=== PATIENT | female | born 1965 | race Caucasian/White ===

== ENCOUNTER 2021-05-23 08:06 | Inpatient (IN) ==
[2021-05-23] MEDS ORDERED: IOPAMIDOL 100 ML BOTTLE IV ONE (08:07)
[2021-05-23] MEDS ORDERED: 0.9 % SODIUM CHLORIDE 1,000 ML IV ONE (08:24)
--- NOTE | 2021-05-23 08:27 | Emergency Department Note ---
Abdominal Pain HPI General Chief Complaint: Constipation Stated Complaint: Constipation Time Seen by Provider: 05/23/21 08:08 Source: patient Mode of arrival: ambulatory Limitations: no limitations History of Present Illness HPI Narrative: Patient is a 55-year-old lady who arrives emergency department. History is provided by the patient discussion with the urgent care provider who initially treated her and review of her medical records. The patient says she started feeling constipated last Wednesday. She had had a very small bowel movement and also had a small bowel movement on Wednesday. Her symptoms were gradual in onset and gradually worsening to the point that she was not having any bowel movements on Wednesday or Wednesday. She tried taking [id number] laxatives which produced some watery stool but no significant bowel movement. She presented to minor care on the and was diagnosed with constipation. She is continue trying laxatives at home without any improvement in her symptoms. Over the past several days she is also developed worsening abdominal bloating and has had a few episodes of brown emesis. Due to her worsening symptoms she presented once again to minor care and had an x-ray which showed significantly dilated bowel loops. She was then sent to the emergency department for further evaluation. She denies any associated fever or chills. Her abdominal pain is poorly locali zed and waxes and wanes in intensity. She has never had anything like this before. Related Data Home Medications Medication Instructions Recorded Confirmed multivitamin 1 tab PO QDAY 07/26/19 05/23/21 cetirizine 10 mg tablet (24Hour 10 mg PO QDAY PRN 12/13/20 05/23/21 Allergy) Previous Rx's Medication Instructions Recorded norethindrone (contraceptive) 0.35 See Rx Instructions .ROUTE 04/21/21 mg tablet .COMPLEX #84 tab Allergies Allergy/AdvReac Type Severity Reaction Status Date / Time Sulfa (Sulfonamide Allergy Severe Unknown Verified 05/23/21 07:11 Antibiotics) Penicillins Allergy Mild Rash Verified 05/23/21 10:48 Review of Systems ROS ROS Narrative: Narrative: All systems ED: reviewed and negative except as stated. 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 Howard No pertinent past surgical history Family History Other Family history unknown Social History Smoking Status: Never smoker Alcohol Intake Frequency: 0-2 drinks per day Substance Use: does not use Exam Narrative Narrative: I reviewed the vital signs. Gen -patient is awake and alert and appears somewhat uncomfortable but in no acute distress. The patient is well groomed. HEENT -head is atraumatic. There is no conjunctival pallor or scleral icterus. Mucous membranes are moist. CV -S1-S2 regular rate and rhythm. Peripheral pulses are palpable. There is no JVD. Resp -breathing is nonlabored. Lungs are clear to auscultation bilaterally. There is no cyanosis. GI - Abdomen is moderately distended and moderately tender to palpation diffusely. There is no guarding or rebound tenderness. Derm -skin is warm and dry. There is no visible rash. MSK -present extremities are atraumatic. Psych -patient has appropriate affect. The patient does not appear internally stimulated. Neuro -patient answers questions appropriately with fluent speech. Patient moves all present extremities equally. General Limitations: no limitations Course Vital Signs Vital signs: Vital Signs Temperature 98.6 F 05/23/21 08:07 Pulse Rate 98 H 05/23/21 08:07 Respiratory Rate 18 05/23/21 08:07 Blood Pressure 147/90 05/23/21 08:07 Pulse Oximetry (%) 100 05/23/21 08:07 Temperature 98 F 05/23/21 15:06 Pulse Rate 76 05/23/21 15:06 Respiratory Rate 18 05/23/21 15:06 Blood Pressure 167/90 05/23/21 15:06 Pulse Oximetry (%) 94 05/23/21 15:06 MDM MDM Narrative Medical decision making narrative: Patient presents with constipation abdominal distention and pain. Labs are r emarkable for a minimal leukocytosis and normal lactate. CT scan reveals a large bowel obstruction with an area suspicious for an apple core lesion colon. I discussed the diagnostic findings and my clinical concerns for possible colonic malignancy with the patient and her daughter. I also discussed her history examination and diagnostic findings with Dr. Keller. He evaluated the patient in the emergency department and took her to the operating room for intervention. Lab Data Lab results reviewed: Yes I reviewed the patient's lab results. Result diagrams: 05/23/21 13:34 05/23/21 08:35 Labs: Lab Results 05/23/21 05/23/21 05/23/21 Range/Units 08:35 08:35 08:35 WBC 8.9 (4.5-11.0) K/mcL RBC 4.62 (3.59-5.38) M/mcL Hgb 13.6 (11.2-15.7) g/dL Hct 42.0 (34.1-44.9) % MCV 90.9 (80.0-100.0) fL MCH 29.4 (26.0-34.0) pg MCHC 32.4 (31.0-36.0) g/dL RDW 12.5 (11.5-14.5) % Plt Count 398 (140-440) K/mcL MPV 9.7 (7.4-10.4) fL Neut % (Auto) 79.4 H (38.0-78.0) % Lymph % (Auto) 12.3 L (15.5-49.0) % Baldwin % (Auto) 7.3 (1.0-12.0) % Eos % (Auto) 0.3 (0.0-7.0) % Baso % (Auto) 0.7 (0.0-2.0) % Lymph # (Auto) 1.09 L (1.50-4.80) K/mcL Baldwin # (Auto) 0.65 (0.10-0.90) K/mcL Eos # (Auto) 0.03 (0.00-0.70) K/mcL Baso # (Auto) 0.06 (0.00-0.30) K/mcL Absolute Neutrophils 7.02 (1.80-8.00) K/mcL VBG Lactic Acid 1.0 (0.5-2.0) mmol/L Sodium 134 (133-145) mmol/L Potassium 3.2 L (3.3-5.1) mmol/L Chloride 95 L (96-108) mmol/L Carbon Dioxide 19 L (22-30) mmol/L Anion Gap 20.0 H (8.0-16.0) BUN 9 (6-20) mg/dL Creatinine 0.7 (0.6-1.1) mg/dL GFR Calculation 98 Glucose 93 (70-105) mg/dL Calcium 8.9 (8.6-10.4) mg/dL Total Bilirubin 0.5 (0.1-1.0) mg/dL AST 19 (<32) U/L ALT 14 (<40) U/L Alkaline Phosphatase 60 (39-117) U/L Total Protein 7.0 (5.9-8.4) gm/dL Albumin 4.5 (3.2-5.2) gm/dL Globulin 2.5 (2.2-3.7) gm/dL Albumin/Globulin Ratio 1.8 (1.0-2.3) Lipase 9 (7-60) U/L HCG, Qual Negative Urine Color Urine Appearance (Clear) Urine pH (5.0-9.0) Ur Specific Conway (1.000-1.035) Urine Protein (Negative) mg/dL Urine Glucose (UA) (Negative) mg/dL Urine Ketones (Negative) mg/dL Urine Occult Blood (Negative) mg/dL Urine Nitrate (Negative) Urine Bilirubin (Negative) mg/dL Urine Urobilinogen mg/dL Ur Leukocyte Esterase (Negative) /uL Urine RBC (0-3) /hpf Urine WBC (0-4) /hpf Ur Squamous Epith Cells (0-4) /hpf Urine Bacteria (0) /hpf Urine Mucus (None) /hpf Ur Culture Indicated? 05/23/21 05/23/21 Range/Units 11:40 13:34 WBC 12.2 H (4.5-11.0) K/mcL RBC 4.10 (3.59-5.38) M/mcL Hgb 12.5 (11.2-15.7) g/dL Hct 38.0 (34.1-44.9) % MCV 92.7 (80.0-100.0) fL MCH 30.5 (26.0-34.0) pg MCHC 32.9 (31.0-36.0) g/dL RDW 12.5 (11.5-14.5) % Plt Count 396 (140-440) K/mcL MPV 9.4 (7.4-10.4) fL Neut % (Auto) 80.3 H (38.0-78.0) % Lymph % (Auto) 13.2 L (15.5-49.0) % Baldwin % (Auto) 6.0 (1.0-12.0) % Eos % (Auto) 0.2 (0.0-7.0) % Baso % (Auto) 0.3 (0.0-2.0) % Lymph # (Auto) 1.61 (1.50-4.80) K/mcL Baldwin # (Auto) 0.73 (0.10-0.90) K/mcL Eos # (Auto) 0.02 (0.00-0.70) K/mcL Baso # (Auto) 0.04 (0.00-0.30) K/mcL Absolute Neutrophils 9.84 H (1.80-8.00) K/mcL VBG Lactic Acid (0.5-2.0) mmol/L Sodium (133-145) mmol/L Potassium (3.3-5.1) mmol/L Chloride (96-108) mmol/L Carbon Dioxide (22-30) mmol/L Anion Gap (8.0-16.0) BUN (6-20) mg/dL Creatinine (0.6-1.1) mg/dL GFR Calculation Glucose (70-105) mg/dL Calcium (8.6-10.4) mg/dL Total Bilirubin (0.1-1.0) mg/dL AST (<32) U/L ALT (<40) U/L Alkaline Phosphatase (39-117) U/L Total Protein (5.9-8.4) gm/dL Albumin (3.2-5.2) gm/dL Globulin (2.2-3.7) gm/dL Albumin/Globulin Ratio (1.0-2.3) Lipase (7-60) U/L HCG, Qual Urine Color P.yellow Urine Appearance Clear (Clear) Urine pH 5.0 (5.0-9.0) Ur Specific Conway 1.035 (1.000-1.035) Urine Protein Negative (Negative) mg/dL Urine Glucose (UA) Negative (Negative) mg/dL Urine Ketones 80 A (Negative) mg/dL Urine Occult Blood 0.03 (Negative) mg/dL Urine Nitrate Negative (Negative) Urine Bilirubin Negative (Negative) mg/dL Urine Urobilinogen Negative mg/dL Ur Leukocyte Esterase Negative (Negative) /uL Urine RBC 1 (0-3) /hpf Urine WBC 1 (0-4) /hpf Ur Squamous Epith Cells 3 (0-4) /hpf Urine Bacteria None (0) /hpf Urine Mucus Mod A (None) /hpf Ur Culture Indicated? No ED POC Tests ED POC Tests: CHELA - SARS Antigen Negative Discharge Plan Patient/Caregiver Discharge Instructions Pt seen by ADULT CARE MANAGER/PA only: No Clinical Impression: Mass of colon Patient Disposition: Xfer Other Condition: Good Discharge Date/Time: 05/23/21 11:57
[2021-05-23 09:44] LABS: Basophils # (Auto) 0.06 K/mcL (0.00-0.30); Basophils % (Auto) 0.7 % (0.0-2.0); Eosinophils # (Auto) 0.03 K/mcL (0.00-0.70); Eosinophils % (Auto) 0.3 % (0.0-7.0); Hemoglobin 13.6 g/dL (11.2-15.7); Lymphocytes # (Auto) 1.09 K/mcL (1.50-4.80); Lymphocytes % (Auto) 12.3 % (15.5-49.0); Mean Cell Volume 90.9 fL (80.0-100.0); Mean Corpuscular HGB Conc 32.4 g/dL (31.0-36.0); Mean Platelet Volume 9.7 fL (7.4-10.4); Monocytes # (Auto) 0.65 K/mcL (0.10-0.90); Monocytes % (Auto) 7.3 % (1.0-12.0); Neutrophils % (Auto) 79.4 % (38.0-78.0); Platelet Count 398 K/mcL (140-440); RBC 4.62 M/mcL (3.59-5.38); Red Cell Distribution Width 12.5 % (11.5-14.5); WBC 8.9 K/mcL (4.5-11.0)
--- NOTE | 2021-05-23 09:56 | Cat Scan Report ---
CLINICAL INFORMATION: Abdominal pain and distention COMPARISON: None. TECHNIQUE: Following enteric contrast, 80 cc of Isovue-370 were injected intravenously, and 60 seconds later, 0.625 mm helical slices were obtained from the mid heart through the subtrochanteric regions. Following reconstruction, 2.5 mm sagittal, coronal and axial reformatted images were processed and reviewed at bone, lung and soft tissue windows. Five minutes later, 0.625 mm helical slices were obtained from the mid heart through the kidneys and viewed at soft tissue windows.The exam was performed using radiation dose optimization techniques including, but not limited to, automated exposure control, adjustment of the mA and/or kV according to patient size and use of iterative reconstruction technique. FINDINGS: The lung bases are clear. No effusions. Small hiatal hernia appreciated. The visualized heart is grossly normal. Abdominal images show the gallbladder and bile ducts, liver, both kidneys, adrenal glands, spleen, pancreas and aorta, including aortic branches, are normal in size, configuration and attenuation without focal lesion. There is no adenopathy. Small free fluid is noted in the perisplenic perihepatic and intrapelvic regions. There is no free air Pelvic images show normal urinary bladder. Uterus and both ovaries are normal in size, configuration and attenuation for age. The ascending, transverse, descending and sigmoid colon are markedly dilated to the distal sigmoid level. In this area, there is concentric apple core type wall thickening which spans 18 m in length and 7 mm in thickness. It is suspicious for adenocarcinoma. The distal sigmoid and rectum are decompressed. It is best seen on sagittal image 89 and coronal image 85. The stomach and small bowel are unremarkable. Bone windows show no osseous abnormality IMPRESSION: 1. High-grade partial distal sigmoid obstruction resulting in marked proximal colonic dilatation. At the transition point, there is an 18 mm long annular apple core type wall thickening which may represent primary adenocarcinoma. No evidence of adenopathy or metastatic disease. Small amount of ascites noted. Suggest GI referral for colonoscopy. Interpreted and Authenticated by: Juan Swenson 05/23/21
[2021-05-23 10:01] LABS: HCG,Serum Negative
[2021-05-23 10:11] LABS: ALT/SGPT 14 U/L (<40); AST/SGOT 19 U/L (<32); Albumin 4.5 gm/dL (3.2-5.2); Albumin/Globulin Ratio 1.8 (1.0-2.3); Alkaline Phosphatase 60 U/L (39-117); Bilirubin,Total 0.5 mg/dL (0.1-1.0); Blood Urea Nitrogen 9 mg/dL (6-20); Calcium 8.9 mg/dL (8.6-10.4); Carbon Dioxide 19 mmol/L (22-30); Chloride 95 mmol/L (96-108); Globulin 2.5 gm/dL (2.2-3.7); Glomerular Filtration Rate 98; Glucose 93 mg/dL (70-105)
[2021-05-23] MEDS ORDERED: morphine 4 MG/ML VIAL IV ONE (10:18)
[2021-05-23] MEDS ORDERED: ONDANSETRON 4 MG/2 ML VIAL IV ONE (10:18)
[2021-05-23] MEDS ORDERED: CLINDAMYCIN 600 MG in DEXTROSE 5% IN WATER 50 ML IV SCH (10:45)
--- NOTE | 2021-05-23 10:47 | General Surg History&Physical ---
HPI History of Present Illness Patient information: Note initiated : 05/23/21 at 10:43 am Service Date, if different from initiated Date: [] Patient: Spring Bautista a 55 y/o F admitted on for Constipation. Chief Complaint: [] History of present illness: Ms. Bautista is a 55 year old F who over the last week or so has felt constipated, she has had a change in her caliber of her stools over the last month or so, she is only had liquid bowel movements over the last few days. She was seen and evaluated by urgent care, plain films showed a markedly dilated colon therefore she was referred to the emergency room. In the emergency room she underwent a CT scan which is significant for a distal sigmoid apple core lesion causing a large bowel obstruction with markedly dilated ascending transverse and descending colon. At this time she has no nausea vomiting fevers or chills. I was asked to see the patient secondary to large bowel obstructi on. 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 Howard No pertinent past surgical history Family History Other Family history unknown Social History adopted: Yes marital status: occupational status: employed occupation: [employer] physical activity: walking and weight training frequency: 3-4 times per week smoking status: Never smoker alcohol intake frequency: 0-2 drinks per day substance use type: does not use seatbelt use: always MEDS/ALLERGIES Home Medications and Allergies Home Medications Medication Instructions Recorded Confirmed Type multivitamin 1 tab PO QDAY 07/26/19 05/23/21 History cetirizine 10 mg tablet (24Hour 10 mg PO QDAY PRN 12/13/20 05/23/21 History Allergy) norethindrone (contraceptive) 0.35 See Rx Instructions .ROUTE 04/21/21 05/23/21 Rx mg tablet .COMPLEX #84 tab Allergies Allergy/AdvReac Type Severity Reaction Status Date / Time Penicillins Allergy Severe Unknown Verified 05/23/21 07:11 Sulfa (Sulfonamide Allergy Severe Unknown Verified 05/23/21 07:11 Antibiotics) Physical Examination Vital Signs Vital signs: Temp Pulse Resp BP Pulse Ox 98.6 F 88 18 192/98 99 05/23/21 08:07 05/23/21 09:23 05/23/21 08:07 05/23/21 10:01 05/23/21 09:31 General physical appearance General physical exam: well developed, well nourished and no distress Eyes Eye exam: PERRL and normal ocular movement ENT ENT exam: normal pinna, normal nares, normal mucosa, no hearing loss and no congestion Head Head exam IM: Present atraumatic and normocephalic Neck Neck exam: no masses, no bruits, trachea midline, no lymphadenopathy and no venous distension Cardiovascular Cardiovascular exam IM: Present normal rate and rhythm Respiratory Respiratory exam: normal expansion, normal respiratory effort, clear to percussion and clear to auscultation Abdomen Abdomen: Present soft, non tender, bowel sounds and distended; Absent masses Hernia: Present none Genitourinary Genitourinary (Female): Present normal external genitalia Rectum Rectum: Present normal sphincter tone, no hemorrhoids, no tenderness, no masses and no bleeding Integumentary Integumentary: Present no rash, no growths and no abnormal pigmentation Neurologic Neurologic: Present normal coordination and normal sensation Musculoskeletal Musculoskeletal: Present normal gait and normal posture Psychiatric Psychiatric: Present oriented to time, oriented to person, oriented to place, speech is normal and memory intact Results Labs Result diagrams: 05/23/21 08:35 05/23/21 08:35 Labs: Abnormal lab results 05/23/21 05/23/21 Range/Units 08:35 08:35 Neut % (Auto) 79.4 H (38.0-78.0) % Lymph % (Auto) 12.3 L (15.5-49.0) % Lymph # (Auto) 1.09 L (1.50-4.80) K/mcL Potassium 3.2 L (3.3-5.1) mmol/L Chloride 95 L (96-108) mmol/L Carbon Dioxide 19 L (22-30) mmol/L Anion Gap 20.0 H (8.0-16.0) Diabetes panel 05/23/21 Range/Units 08:35 Sodium 134 (133-145) mmol/L Potassium 3.2 L (3.3-5.1) mmol/L Chloride 95 L (96-108) mmol/L Carbon Dioxide 19 L (22-30) mmol/L BUN 9 (6-20) mg/dL Creatinine 0.7 (0.6-1.1) mg/dL Glucose 93 (70-105) mg/dL Calcium 8.9 (8.6-10.4) mg/dL AST 19 (<32) U/L ALT 14 (<40) U/L Alkaline Phosphatase 60 (39-117) U/L Total Protein 7.0 (5.9-8.4) gm/dL Albumin 4.5 (3.2-5.2) gm/dL Calcium panel 05/23/21 Range/Units 08:35 Calcium 8.9 (8.6-10.4) mg/dL Albumin 4.5 (3.2-5.2) gm/dL Pituitary panel 05/23/21 Range/Units 08:35 Sodium 134 (133-145) mmol/L Potassium 3.2 L (3.3-5.1) mmol/L Chloride 95 L (96-108) mmol/L Carbon Dioxide 19 L (22-30) mmol/L BUN 9 (6-20) mg/dL Creatinine 0.7 (0.6-1.1) mg/dL Glucose 93 (70-105) mg/dL Calcium 8.9 (8.6-10.4) mg/dL Adrenal panel 05/23/21 Range/Units 08:35 Sodium 134 (133-145) mmol/L Potassium 3.2 L (3.3-5.1) mmol/L Chloride 95 L (96-108) mmol/L Carbon Dioxide 19 L (22-30) mmol/L BUN 9 (6-20) mg/dL Creatinine 0.7 (0.6-1.1) mg/dL Glucose 93 (70-105) mg/dL Calcium 8.9 (8.6-10.4) mg/dL Total Bilirubin 0.5 (0.1-1.0) mg/dL AST 19 (<32) U/L ALT 14 (<40) U/L Alkaline Phosphatase 60 (39-117) U/L Total Protein 7.0 (5.9-8.4) gm/dL Albumin 4.5 (3.2-5.2) gm/dL All other labs normal. Imaging CT scan - abdomen: image reviewed A/P Assessment and plan (1) Large bowel obstruction: Status: Acute (2) Mass of colon: Status: Acute Narrative A/P Narrative: This is a pleasant 55-year-old female who presents with a large bowel obstructio n secondary to what appears to be an apple core lesion of the distal sigmoid colon. Risk, benefits, alternatives to treatment discussed with her at length. Colonoscopy to diagnose the lesion would likely lead to perforation secondary to the extremely dilated colon. Given the large bowel obstruction I would recommend exploratory laparotomy with resection of the mass and due to the dilated colon would recommend colostomy at this time. She verbalizes understanding, all of her questions are answered. She desires to continue. Plan: Admit to medical surge floor. to OR for exploratory laparotomy, sigmoid colectomy and ostomy at next available OR time. Time Spent With Patient Time: Total time spent is greater than 50% in coordination of care (as documented) at patient's floor/unit and/or counseling patient:
[2021-05-23] MEDS ORDERED: POTASSIUM PHOSPHATE 40 MEQ in DEXTROSE 5% IN WATER 500 ML IV ONE (11:35)
[2021-05-23] MEDS ORDERED: ONDANSETRON 4 MG/2 ML VIAL ONE (11:54)
[2021-05-23] MEDS ORDERED: DEXAMETHASONE 10 MG/ML VIAL ONE (11:54)
[2021-05-23] MEDS ORDERED: PROPOFOL 200 MG/20 ML VIAL IV ONE (11:54)
[2021-05-23] MEDS ORDERED: ROCURONIUM 10 MG/ML ML IV ONE (11:54)
[2021-05-23] MEDS ORDERED: PHENYLephrine 1 MG/10 ML SYRINGE (ANEST) ONE (11:54)
[2021-05-23] MEDS ORDERED: GLYCOPYRROLATE 0.2 MG/ML VIAL IV ONE (11:54)
[2021-05-23] MEDS ORDERED: fentaNYL 250 MCG/5 ML VIAL IV ONE (11:54)
[2021-05-23] MEDS ORDERED: ROPIVACAINE HCL/PF 20 ML VIAL IJ ONE (11:54)
[2021-05-23] MEDS ORDERED: SUGAMMADEX SODIUM 200 MG/2 ML VIAL IV ONE (11:54)
[2021-05-23] MEDS ORDERED: MIDAZOLAM 2 MG/2 ML VIAL ONE (11:54)
[2021-05-23] MEDS ORDERED: POTASSIUM CHLORIDE 40 MEQ/100 ML BAG IV ONE (11:54)
[2021-05-23] MEDS ORDERED: LIDOCAINE HCL/PF 100 MG/5 ML SYRINGE IV ONE (11:54)
[2021-05-23] MEDS ORDERED: KETAMINE 50 MG/ML Syringe (ANEST) IV ONE (11:54)
[2021-05-23 12:58] LABS: Appearance,Urine CLEAR (Clear); Bilirubin,Urine Negative (Negative); Color,Urine P.Yellow; Culture Indicated,Urine No; Glucose,Urine (UA) Negative (Negative); Ketones,Urine 80 mg/dL (Negative); Leukocyte Esterase,Urine Negative /uL (Negative); Mucus,Urine MOD /hpf; Nitrate,Urine Negative (Negative); Protein,Urine Negative (Negative); Specific Gravity,Urine 1.035 (1.000-1.035); Urine Blood 0.03 mg/dL (Negative); Urine RBC 1 /hpf (0-3); Urine Squamous Epithelial Cell 3 /hpf (0-4); Urine WBC 1 /hpf (0-4); Urobilinogen,Urine Negative
[2021-05-23] MEDS ORDERED: ACETAMINOPHEN 325 MG TABLET PO PRN (13:14)
[2021-05-23] MEDS ORDERED: ONDANSETRON 4 MG/2 ML VIAL IV PRN (13:14)
--- NOTE | 2021-05-23 13:14 | Operative Note ---
Brief Operative Note Date of procedure: 05/23/21 Pre-op diagnosis: Obstructing sigmoid mass Post-op diagnosis: same Procedure: Exploratory laparotomy, sigmoid colectomy, ostomy Grafts/Implants: No Anesthesia: GETA Findings: Apple core lesion in the mid sigmoid colon Complications: none Surgeon: Scotty Keller Estimated blood loss (cc): 100 Specimens Removed/Pathology: other (Sigmoid colon) Condition: stable Disposition: PACU Operative Note Operative Note: After risk benefits and alternatives to the procedure were discussed with the patient at length she verbalized understanding and desire to continue with the procedure. Patient was taken to main operating place upon operative table. General anesthesia was induced over endotracheal tube. Patient's prepped and draped in standard sterile surgical fashion. Surgical timeout was taken to verify patient and procedure being performed. Lower midline incision was made carried down through the skin and subcutaneous tissue upon entry into the abdominal cavity abdominal expiration revealed a lesion in the big sigmoid colon with dilated colon up to 10 cm in the cecum. The small bowel was completely decompressed consistent with a competent ileocecal valve. The sigmoid colon was transected at the rectosigmoid junction which gave a minimum of 5 cm margin from the mass it was also transected at the junction of the descending to sigmoid colon. The mesentery was taken down using the LigaSure device and the specimen was passed off the field for surgical pathology. The abdominal cavity was copiously irrigated, the rectal stump was tacked with 2 interrupted 2-0 PDS sutures to make it easier to find at the time of reversal. The pelvis was expected and there was no further pathology. Full abdominal expiration revealed no obvious liver or splenic lesions. A left-sided ostomy site was created carried down through skin and subcutaneous tissue. A cruciate lesion was made, the rectus muscles were spread and the abdominal cavity was entered. The descending colon was brought out through the ostomy site and there was no tension on the colon. The midline incision was closed with a running looped 0 PDS suture. Subcutaneous tissue was closed with a running 2-0 Vicryl suture and the skin was closed with a running 4-0 Monocryl suture. Skin glue dressings were applied. The ostomy was then matured with interrupted 3-0 Vicryl sutures once this is done and ostomy appliance was applied. Patient was then awakened from anesthesia transported postanesthesia care in awake alert good condition.
[2021-05-23] MEDS: LACTATED RINGERS 1,000 ML IV SCH ×2 (13:34→18:17)
[2021-05-23] MEDS ORDERED: KETOROLAC 15 MG/ML VIAL IV PRN (13:38)
[2021-05-23] MEDS ORDERED: PROMETHAZINE 25 MG/ML VIAL IV PRN (13:38)
[2021-05-23] MEDS ORDERED: ACETAMINOPHEN 1,000 MG/100 ML BAG IV ONE (13:38)
[2021-05-23] MEDS ORDERED: HYDROmorphone 0.5 MG/0.5 ML SYRINGE IV PRN (13:38)
[2021-05-23] MEDS ORDERED: MEPERIDINE 50 MG/ML VIAL IM PRN (13:38)
[2021-05-23] MEDS ORDERED: IPRATROPIUM/ALBUTEROL 3 ML AMPUL.NEB NEB PRN (13:38)
[2021-05-23] MEDS ORDERED: BENZOCAINE/MENTHOL 1 LOZENGE PO PRN (13:38)
[2021-05-23] MEDS ORDERED: PROMETHAZINE 25 MG/ML VIAL IM PRN (13:38)
[2021-05-23] MEDS ORDERED: LACTATED RINGERS 250 ML IV PRN (13:38)
[2021-05-23] MEDS ORDERED: NALOXONE HCL 0.4 MG/ML VIAL IV PRN (13:38)
[2021-05-23] MEDS: MEPERIDINE 25 MG/ML VIAL IV PRN ×2 (13:39→13:44)
[2021-05-23] MEDS ORDERED: fentaNYL 100 MCG/2 ML VIAL IV ONE (13:41)
[2021-05-23] MEDS ORDERED: MEPERIDINE 50 MG/ML VIAL ONE (13:42)
[2021-05-23] MEDS: fentaNYL 100 MCG/2 ML VIAL IV PRN ×4 (13:42→13:59)
[2021-05-23] MEDS ORDERED: LACTATED RINGERS 1,000 ML IV SCH (13:45)
[2021-05-23 14:07] LABS: Basophils # (Auto) 0.04 K/mcL (0.00-0.30); Basophils % (Auto) 0.3 % (0.0-2.0); Eosinophils # (Auto) 0.02 K/mcL (0.00-0.70); Eosinophils % (Auto) 0.2 % (0.0-7.0); Hemoglobin 12.5 g/dL (11.2-15.7); Lymphocytes # (Auto) 1.61 K/mcL (1.50-4.80); Lymphocytes % (Auto) 13.2 % (15.5-49.0); Mean Cell Volume 92.7 fL (80.0-100.0); Mean Corpuscular HGB Conc 32.9 g/dL (31.0-36.0); Mean Platelet Volume 9.4 fL (7.4-10.4); Monocytes # (Auto) 0.73 K/mcL (0.10-0.90); Neutrophils % (Auto) 80.3 % (38.0-78.0); Platelet Count 396 K/mcL (140-440); Red Cell Distribution Width 12.5 % (11.5-14.5); WBC 12.2 K/mcL (4.5-11.0)
[2021-05-23] MEDS: HYDROmorphone 1 MG/ML SYRINGE IV PRN ×3 (14:55→23:45)
[2021-05-23] MEDS: 0.9 % SODIUM CHLORIDE 10 ML SYRINGE IV SCH ×2 (15:02→21:04)
--- NOTE | 2021-05-23 16:15 | EKG ---
[facility] Test Date: 2021-05-23 Pat Name: Spring Bautista Department: ED Room: Gender: Female Block Cleaner: KENZIE : 1965 Requested By: Pipe Lamb Order Number: [id number] Reading MD: Juan Rahman M.D. Measurements Intervals Clarence Rate: 77 P: 44 GA: 135 QRS: -1 QRSD: 94 T: 2 QT: 403 QTc: 457 Interpretive Statements Sinus rhythm Poor R wave progression. Consider anterior infarct Electronically Signed On 05-23-2021 16:15:06 PST by Juan Rahman M.D. /store/[email or web address]/[id number]
[2021-05-23] MEDS: oxyCODONE HCL 5 MG TABLET PO PRN (22:19)
[2021-05-24] MEDS: HYDROmorphone 1 MG/ML SYRINGE IV PRN (03:46)
[2021-05-24] MEDS: LACTATED RINGERS 1,000 ML IV SCH ×4 (03:46→22:30)
[2021-05-24] MEDS: 0.9 % SODIUM CHLORIDE 10 ML SYRINGE IV SCH ×4 (03:47→20:15)
[2021-05-24] MEDS: oxyCODONE HCL 5 MG TABLET PO PRN ×5 (07:07→22:30)
--- NOTE | 2021-05-24 07:22 | General Surgery Progress Note ---
SUBJECTIVE Subjective Patient information: Note initiated : 05/24/21 at 7:21 am Service Date, if different from initiated Date: [] Patient: Spring Bautista 55 y/o F admitted on 05/23/21 for Constipation. 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 Patient is doing well, she is ambulatory. She has no nausea or vomiting. Her ostomy is having output. Constitutional Vitals: Vital Signs Temp Pulse Resp BP Pulse Ox 98.3 F 80 16 147/77 95 05/24/21 07:12 05/24/21 07:12 05/24/21 07:12 05/24/21 07:12 05/24/21 07:12 Period Temp Pulse Resp BP Sys/Garcia Pulse Ox Last 24 Hr 97.2 F-98.6 F 61-98 10- 119-199/73-105 90-100 Intake and Output 05/23/21 05/24/21 05/24/21 21:59 05:59 13:59 Intake Total 2154 1150 Output Total 250 2230 Balance 1904 -1080 Weight 164 lb 14.4 oz Intake & Output: Intake & Output 05/23/21 05/24/21 05/24/21 21:59 05:59 13:59 Intake Total 2154 1150 Output Total 250 2230 Balance 1904 -1080 Weight 164 lb 14.4 oz Intake: IV 454 Lactated Ringers 1,000 ml @ 75 354 mls/hr IV .[id number] [facility] Rx#: [id number] Oral 1300 1150 IV - Manual Only 400 Output: Urine Catheter Amount 250 2150 Stool 80 Other: Meal Dinner Percent of Meal Consumed 75% Feeding Ability Independent Urine Appearance Clear Cloudy Uretheral (Morrow) Clear Urine Color Straw Pale Uretheral (Morrow) Straw Urine Odor Normal Uretheral (Morrow) Normal Stool Color Brown Stool Consistency Liquid General appearance: cooperative and no acute distress GI/Abdominal GI/Abdominal exam: Present normal bowel sounds, soft and tenderness (Appropriate tender to palpation); Absent distended Additional comments: Incision is clean dry and intact, ostomy is pink and functioning A/P Narrative A/P Narrative: Postop day #1 status post exploratory laparotomy, sigmoid colectomy and ostomy. Patient is doing well, no appetite as of yet. Continue with liquid diet, if she tolerates today can be advanced to regular diet tomorrow. Time Spent With Patient Time: Total time spent is greater than 50% in coordination of care (as documented) at patient's floor/unit and/or counseling patient:
[2021-05-25] MEDS: oxyCODONE HCL 5 MG TABLET PO PRN ×5 (02:53→21:09)
[2021-05-25] MEDS: LACTATED RINGERS 1,000 ML IV SCH ×2 (04:29→20:29)
[2021-05-25] MEDS: 0.9 % SODIUM CHLORIDE 10 ML SYRINGE IV SCH ×3 (04:37→20:57)
--- NOTE | 2021-05-25 09:49 | General Surgery Progress Note ---
SUBJECTIVE Subjective Patient information: Note initiated : 05/25/21 at 9:46 am Service Date, if different from initiated Date: [] Patient: Spring Bautista a 55 y/o F admitted on 05/23/21 for Constipation. Chief Complaint: [POD #2 Open Sigmoid Resection with End Colostomy for Malignant Colonic Obstruction] Spring feels well this am with only minimal pain. She denies any SOB or Chest Pain. She is tolerating Clear Liquids well without issue Constitutional Vitals: Vital Signs Temp Pulse Resp BP Pulse Ox 97.6 F 74 16 158/85 97 05/25/21 07:56 05/25/21 07:56 05/25/21 07:56 05/25/21 07:56 05/25/21 07:56 Period Temp Pulse Resp BP Sys/Garcia Pulse Ox Last 24 Hr 97.6 F-99 F 70-87 16-18 120-161/61-85 94-97 Intake and Output 05/24/21 05/25/21 05/25/21 21:59 05:59 13:59 Intake Total 1000 400 550 Output Total 2650 1525 400 Balance -1650 -1125 150 Weight 163 lb 3.2 oz Intake & Output: Intake & Output 05/24/21 05/25/21 05/25/21 21:59 05:59 13:59 Intake Total 1000 400 550 Output Total 2650 1525 400 Balance -1650 -1125 150 Weight 163 lb 3.2 oz Intake: IV 1000 Lactated Ringers 1,000 ml @ 75 1000 mls/hr IV .[id number] [facility] Rx#: [id number] Oral 400 550 Output: Urine Catheter Amount 1650 Void Amount 1000 1500 400 Stool 25 Other: Urine Appearance Clear Urine Color Pale Stool Color Brown Stool Consistency Liquid # Voids 1 General appearance: no acute distress Head Head exam: Present atraumatic and normocephalic Respiratory Additional comments: no respiratory distress Cardiovascular Cardiovascular exam: Present normal rate and rhythm and RRR GI/Abdominal Additional comments: belly is soft and generally flat, midline incision is intact without drainage or infection, ostomy looks pink with some liquid stool Extremities Exam Additional comments: appear well perfused A/P Narrative A/P Narrative: POD #2 Open Sigmoid Resection with End Colostomy for Malignant Colonic Obst ruction Doing Well Advance Diet as Tolerated - she indicates she would like to advance slowly - but keep maintenance IVFs going for now with given cautious oral intake DVT prophylaxis Time Spent With Patient Time: Total time spent is greater than 50% in coordination of care (as documented) at patient's floor/unit and/or counseling patient:
[2021-05-25] MEDS: HEPARIN 5,000 UNIT/ML VIAL SQ SCH ×2 (11:38→20:57)
[2021-05-26] MEDS: oxyCODONE HCL 5 MG TABLET PO PRN ×2 (02:39→08:56)
[2021-05-26] MEDS: 0.9 % SODIUM CHLORIDE 10 ML SYRINGE IV SCH (04:36)
[2021-05-26 07:06] LABS: Hematocrit 33.2 % (34.1-44.9); Hemoglobin 10.4 g/dL (11.2-15.7); Mean Cell Volume 96.2 fL (80.0-100.0); Mean Corpuscular HGB Conc 31.3 g/dL (31.0-36.0); Mean Platelet Volume 9.7 fL (7.4-10.4); Platelet Count 292 K/mcL (140-440); RBC 3.45 M/mcL (3.59-5.38); Red Cell Distribution Width 12.7 % (11.5-14.5); WBC 6.6 K/mcL (4.5-11.0)
[2021-05-26] MEDS: HEPARIN 5,000 UNIT/ML VIAL SQ SCH (08:57)
--- NOTE | 2021-05-26 11:39 | Discharge Summary ---
Discharge Provider Provider Patient information: Note initiated : 05/26/21 at 11:38 am Service Date, if different from initiated Date: [] Patient: Spring Bautista 55 y/o F admitted on 05/23/21 for Constipation. Chief Complaint: [] Date of admission: 05/23/21 14:44 Discharge date: 05/26/21 Primary care physician: [facility] Consults: 05/23/21 Consult to Physician [CONS] Stat Comment: Consulting Provider: Scotty Keller Reason For Exam: Physician to Consult COURSE Hospital Course Hospital course: Patient was mated for a large bowel obstruction, underwent exploratory laparotomy, sigmoid colectomy with an colostomy. Postoperatively patient has progressed well, she is now tolerating full liquid diet, ambulatory, pain is controlled and her ostomy is functioning. Discharge diagnosis: Status post sigmoid colectomy for large bowel obstruction. Time Spent with Patient Time attestation: Total time spent providing and/or coordinating discharge services: Physical Examination Vital Signs Vital signs: Temp Pulse Resp BP Pulse Ox 99.0 F 88 20 156/89 97 05/26/21 08:00 05/26/21 08:00 05/26/21 08:00 05/26/21 08:00 05/26/21 08:00 Discharge Plan Patient/Caregiver Discharge Instructions Activity: increase activity as tolerated Diet: Regular Diet Activity Restrictions/Additional Instructions: Follow-up with me in 1 week. Activity as tolerated. Prescriptions: New ibuprofen 800 mg tablet 800 mg PO TID PRN (Reason: pain) Qty: 60 0RF acetaminophen [Tylenol 8 Hour] 650 mg tablet extended release 650 mg PO Q8H PRN (Reason: pain) Qty: 60 0RF oxycodone 5 mg tablet 5 mg PO Q6H PRN (Reason: pain) Qty: 5 0RF Continued norethindrone (contraceptive) 0.35 mg tablet See Rx Instructions .ROUTE .COMPLEX Qty: 84 4RF Dose Instruction: take 1 tablet by mouth once daily Rx Instructions: take 1 tablet by mouth once daily multivitamin Tablet 1 tab PO QDAY 0RF cetirizine [24Hour Allergy] 10 mg tablet 10 mg PO QDAY PRN (Reason: Allergy Symptoms) 0RF Follow Up Plan Follow up with: Scotty Keller MD [Physician] - [place],Patricia L, [employer] [Primary Care Provider] - Patient Disposition: Home, Self-Care Prognosis: Good Discharge Orders: Discharge Order (Routine); Ordered 05/26/21 Ordered By: Scotty Keller Pending Pending Pending: Resuscitation Status Resuscitate (Full Code) Diet Full Liquid Diet Start WedMay 25 1007 Heparin Sodium (Porcine) (Heparin 5,000 Unit/Ml Vial) 5,000 unit SQ Q12 [facility] Last Admin: 05/26/21 08:57 Dose: Not Given Documented by: Admin: 05/25/21 20:57 Dose: 5,000 unit Documented by: Admin: 05/25/21 11:38 Dose: 5,000 unit Documented by: MED Hydromorphone HCl (Hydromorphone 1 Mg/Ml Syringe) 0 mg IV Q2HP PRN; Protocol PRN Reason: Per Pain Protocol Last Admin: 05/24/21 03:46 Dose: 1 mg Documented by: Admin: 05/23/21 23:45 Dose: 1 mg Documented by: Admin: 05/23/21 19:00 Dose: 1 mg Documented by: Admin: 05/23/21 14:55 Dose: 1 mg Documented by: MAE Ondansetron HCl (Ondansetron 4 Mg/2 Ml Vial) 4 mg IV Q4HP PRN; Protocol PRN Reason: Nausea And Vomiting Last Admin: 05/23/21 22:18 Dose: 4 mg Documented by: LADONNA Oxycodone HCl (Oxycodone Hcl 5 Mg Tablet) 0 mg PO Q4HP PRN; Protocol PRN Reason: Per Pain Protocol Last Admin: 05/26/21 08:56 Dose: 5 mg Documented by: Admin: 05/26/21 02:39 Dose: 10 mg Documented by: Admin: 05/25/21 21:09 Dose: 10 mg Documented by: Admin: 05/25/21 16:19 Dose: 5 mg Documented by: Admin: 05/25/21 14:54 Dose: 5 mg Documented by: Admin: 05/25/21 09:22 Dose: 10 mg Documented by: Admin: 05/25/21 02:53 Dose: 10 mg Documented by: Admin: 05/24/21 22:30 Dose: 10 mg Documented by: Admin: 05/24/21 17:30 Dose: 2 mg Documented by: Admin: 05/24/21 12:23 Dose: 10 mg Documented by: [email or web address] Admin: 05/24/21 08:32 Dose: 5 mg Documented by: [id number] Admin: 05/24/21 07:07 Dose: 5 mg Documented by: [id number] Admin: 05/23/21 22:19 Dose: 5 mg Documented by: LADONNA Sodium Chloride (0.9 % Sodium Chloride 10 Ml Syringe) 10 ml IV Q8 [facility] Last Admin: 05/26/21 04:36 Dose: 10 ml Documented by: Admin: 05/25/21 20:57 Dose: 10 ml Documented by: Admin: 05/25/21 16:19 Dose: 10 ml Documented by: Admin: 05/25/21 04:37 Dose: 10 ml Documented by: Admin: 05/24/21 20:15 Dose: 10 ml Documented by: Admin: 05/24/21 15:12 Dose: 10 ml Documented by: Admin: 05/24/21 05:53 Dose: Not Given Documented by: Admin: 05/24/21 03:47 Dose: 10 ml Documented by: Admin: 05/23/21 21:04 Dose: 10 ml Documented by: Admin: 05/23/21 15:02 Dose: Not Given Documented by: MAE Shift Summary 05/26/21 04:32 Shift Summary by Carey Olson Primary Diagnosis: Large bowel obstruction Registration Status: inpatient Day of Hospitalization: admit 05/23 Date of Surgery (if applicable): 05/23/21 Pertinent Medical Dx/Issues (may be more than one):Ms. Bautista is a 55 year old F who over the last week or so has felt constipated, she has had a change in her caliber of her stools over the last month or so, she is only had liquid bowel movements over the last few days. She was seen and evaluated by urgent care, plain films showed a markedly dilated colon therefore she was referred to the emergency room. In the emergency room she underwent a CT scan which is significant for a distal sigmoid apple core lesion causing a large bowel obstruction with markedly dilated ascending transverse and descending colon. At this time she has no nausea vomiting fevers or chills. Sigmoid colostomy placed to [facility]. Interventions (O2, wounds, diuresis, etc): , pain meds Vital Signs with Trends: VSS on RA Meds (abo, pain, BP, etc): 2 oxycodone q 4-5 hrs during the night Lines/Tubes: IV to L hand. Oxygen needs (home use vs. current use): VSS on RA Lab/Rad results: Date of last BM: patient having little liquid BM in ostomy Elimination: bathroom Trends (is the patient improving?): Activity: up ad burt Expected date of discharge: TBD Discharge Plan (needs, disposition, etc): TBD Initialized on 05/26/21 04:32 - END OF NOTE
--- NOTE | 2021-05-27 11:30 | Surgical Pathology Report ---
Histology Microscopic Diagnosis Specimen A- COLON, SIGMOID, PARTIAL COLECTOMY: --- INVASIVE MODERATELY DIFFERENTIATED ADENOCARCINOMA, WITH THE FOLLOWING FEATURES: -- TUMOR SIZE: 4 x 3 x 1.5 cm. -- TUMOR EXTENT: INVADES THROUGH MUSCULARIS PROPRIA INTO PERICOLORECTAL TISSUE. -- LYMPHOVASCULAR INVASION: NOT IDENTIFIED. -- PERINEURAL INVASION: NOT IDENTIFIED. -- SURGICAL MARGINS: FREE OF TUMOR, CARCINOMA IS 3.5 cm FROM THE MESENTERIC (CLOSEST) MARGIN. -- LYMPH NODES: METASTATIC CARCINOMA PRESENT IN ONE OF EIGHTEEN LYMPH NODES (1/18). -- TUMOR DEPOSITS: PRESENT, ONE. -- PATHOLOGIC STAGE CLASSIFICATION: pT3 N1a. --- BACKGROUND COLONIC MUCOSA WITH NO DIAGNOSTIC ALTERATIONS. (RLF:sln) SUMMARY CANCER DATA Procedure: Sigmoidectomy. Tumor Site: Sigmoid. Histologic Type: Adenocarcinoma. Histologic Grade: Grade 2, moderately differentiated. Tumor Size: 4 x 3 x 1.5 cm. Tumor Extent: Invades through muscularis propria into pericolorectal tissue. Macroscopic Tumor Perforation: Not identified. Lymphovascular Invasion: Not identified. Perineural Invasion: Not identified. Margins: All margins negative for invasive carcinoma. Closest margin to invasive carcinoma: Mesenteric margin, 3.5 cm. Invasive carcinoma is 6 cm from the distal margin and 11.5 cm from the proximal margin. Regional Lymph Nodes: Regional lymph node status: Tumor present in regional lymph nodes. Number of lymph nodes with tumor: 1. Number of lymph nodes examined: 18. Tumor Deposits: Present, one. Pathologic Stage Classification: pT3 N1a. Clinical History Large bowel obstruction. Gross Description The specimen is received in formalin designated as colon resection sigmoid colon and consists of a segment of colon that measures 17.5 cm in length with a distal diameter of 2.5 cm and a proximal diameter of 6 cm. Within the mid region there is a tight circumferential mass. The bowel proximal to this is markedly dilated. Both margins are stapled. The specimen is opened revealing brown fecal material. An occlusive circumferential mass is present in the mid region, 6 cm from the stapled distal margin and 11.5 cm from the stapled proximal margin. The resected mesenteric margin in the region of the mass is 3.5 cm. The mass measures 3 x 4 cm. Sectioning reveals the tumor grossly appears to penetrate the muscularis propria to invade subjacent adipose tissue. The proximal bowel wall is thinned to 0.2 cm thickness and the distal wall is up to 0.7 cm thickness. No additional mucosal lesions are identified. A few lymph nodes are identified within attached adipose tissue. Also received is a separate circular portion of skin with underlying adipose tissue. The skin measures 2 x 1.9 cm and has a thickness of 3 cm. Sections are submitted according to the following slide ghotra: A1 - proximal, distal and radial margin; A2-A4 - cross sections of tumor; A5 - technical sales representatives cross sections of colon wall; A6 - possible paracolonic lymph nodes (6, 1 inked and trisected); A7 - possible paracolonic lymph nodes (7); A8 - possible paracolonic lymph nodes (5) with separate portion of vascular tissue and possible associated mass - inked blue; A9 - single grossly positive lymph node; A10 - technical sales representatives cross section of separate skin and underlying adipose tissue. (ACP:solomon) Electronically Signed Raquel Miller MD, FCAP Electronically Signed 05/27/2021 11:28
== END 2021-05-26 14:30 | disposition home or self-care (01) | DRG 330 ==
LOC: ED 08:06 → SUR 11:27 → MEDSUR 14:44
PROVIDERS: ADMIT Surgery; ATTEND Surgery

== ENCOUNTER 2021-07-07 08:00 | Inpatient (IN) ==
[2021-06-30 10:18] LABS: Basophils # (Auto) 0.06 K/mcL (0.00-0.30); Basophils % (Auto) 1.3 % (0.0-2.0); Eosinophils # (Auto) 0.12 K/mcL (0.00-0.70); Eosinophils % (Auto) 2.6 % (0.0-7.0); Hematocrit 41.2 % (34.1-44.9); Lymphocytes # (Auto) 1.78 K/mcL (1.50-4.80); Lymphocytes % (Auto) 38.6 % (15.5-49.0); Mean Cell Volume 93.2 fL (80.0-100.0); Mean Corpuscular HGB Conc 31.6 g/dL (31.0-36.0); Mean Platelet Volume 10.3 fL (7.4-10.4); Monocytes # (Auto) 0.28 K/mcL (0.10-0.90); Monocytes % (Auto) 6.1 % (1.0-12.0); Neutrophils % (Auto) 51.4 % (38.0-78.0); Platelet Count 274 K/mcL (140-440); RBC 4.42 M/mcL (3.59-5.38); Red Cell Distribution Width 13.5 % (11.5-14.5); WBC 4.6 K/mcL (4.5-11.0)
[2021-06-30 10:35] LABS: ALT/SGPT 8 U/L (<40); AST/SGOT 15 U/L (<32); Albumin 4.4 gm/dL (3.2-5.2); Alkaline Phosphatase 63 U/L (39-117); Bilirubin,Total 0.4 mg/dL (0.1-1.0); Blood Urea Nitrogen 16 mg/dL (6-20); Calcium 9.3 mg/dL (8.6-10.4); Carbon Dioxide 23 mmol/L (22-30); Chloride 106 mmol/L (96-108); Globulin 2.2 gm/dL (2.2-3.7); Glomerular Filtration Rate 98; Glucose 105 mg/dL (70-105)
--- NOTE | 2021-06-30 16:39 | EKG ---
[facility] Test Date: 2021-06-30 Pat Name: pSring Bautista Department: [facility]ILA Room: Gender: Female Photographer Model: : 1965 Requested By: Grant Salter Order Number: [id number] Reading MD: Juan Rahman M.D. Measurements Intervals [place] Rate: 59 P: 37 [place]: 146 QRS: 12 QRSD: 92 T: 45 QT: 419 QTc: 415 Interpretive Statements Sinus rhythm Left atrial enlargement Artifact in lead(s) V2 and baseline wander in lead(s) V1,V2,V6 Poor R wave progression. Electronically Signed On 06-30-2021 16:39:05 PST by Juan Rahman M.D. /[facility] [place]/[id number]
[2021-07-10] MEDS ORDERED: SCOPOLAMINE 1 PATCH PATCH TOPICAL PRN (05:00)
[2021-07-10] MEDS ORDERED: IPRATROPIUM/ALBUTEROL 3 ML AMPUL.NEB NEB PRN ×2 (05:00→08:48)
[2021-07-10] MEDS ORDERED: ceFAZolin 1 GM VIAL IV ONE (06:00)
[2021-07-10] MEDS ORDERED: ceFAZolin 2 GM in DEXTROSE 5% IN WATER 50 ML IV SCH (06:15)
[2021-07-10] MEDS ORDERED: SUGAMMADEX SODIUM 200 MG/2 ML VIAL IV ONE (07:37)
[2021-07-10] MEDS ORDERED: KETAMINE 50 MG/ML Syringe (ANEST) IV ONE (07:37)
[2021-07-10] MEDS ORDERED: ONDANSETRON 4 MG/2 ML VIAL ONE (07:37)
[2021-07-10] MEDS ORDERED: LIDOCAINE W/EPI 2% 20 ML VIAL ONE (07:37)
[2021-07-10] MEDS ORDERED: fentaNYL 100 MCG/2 ML VIAL IV ONE (07:37)
[2021-07-10] MEDS ORDERED: DEXAMETHASONE 10 MG/ML VIAL ONE (07:37)
[2021-07-10] MEDS ORDERED: LIDOCAINE HCL/PF 100 MG/5 ML SYRINGE IV ONE (07:37)
[2021-07-10] MEDS ORDERED: ePHEDrine 50 MG/5 ML SYRINGE (ANEST) IV ONE (07:37)
[2021-07-10] MEDS ORDERED: ROPIVACAINE HCL/PF 20 ML VIAL IJ ONE (07:37)
[2021-07-10] MEDS ORDERED: GLYCOPYRROLATE 0.2 MG/ML VIAL IV ONE (07:37)
[2021-07-10] MEDS ORDERED: MIDAZOLAM 2 MG/2 ML VIAL ONE (07:37)
[2021-07-10] MEDS ORDERED: ROCURONIUM 10 MG/ML ML IV ONE (07:37)
[2021-07-10] MEDS ORDERED: PROPOFOL 200 MG/20 ML VIAL IV ONE (07:37)
[2021-07-10] MEDS ORDERED: PROMETHAZINE 25 MG/ML VIAL IM PRN (08:48)
[2021-07-10] MEDS ORDERED: ONDANSETRON 4 MG/2 ML VIAL IV PRN ×2 (08:48→09:39)
[2021-07-10] MEDS ORDERED: LABETALOL 5 MG/ML ML IV PRN (08:48)
[2021-07-10] MEDS ORDERED: PROMETHAZINE 25 MG/ML VIAL IV PRN (08:48)
[2021-07-10] MEDS ORDERED: LACTATED RINGERS 250 ML IV PRN (08:48)
[2021-07-10] MEDS ORDERED: MEPERIDINE 50 MG/ML VIAL IM PRN (08:48)
[2021-07-10] MEDS ORDERED: ACETAMINOPHEN 1,000 MG/100 ML BAG IV ONE (08:48)
[2021-07-10] MEDS ORDERED: NALOXONE HCL 0.4 MG/ML VIAL IV PRN (08:48)
[2021-07-10] MEDS ORDERED: MEPERIDINE 25 MG/ML VIAL IV PRN (08:48)
[2021-07-10] MEDS ORDERED: BENZOCAINE/MENTHOL 1 LOZENGE PO PRN (08:48)
[2021-07-10] MEDS ORDERED: KETOROLAC 30 MG/ML VIAL IV PRN ×2 (08:48→09:39)
[2021-07-10] MEDS ORDERED: LACTATED RINGERS 1,000 ML IV SCH (09:00)
[2021-07-10] MEDS ORDERED: HYDROmorphone 0.5 MG/0.5 ML SYRINGE IV PRN (09:39)
--- NOTE | 2021-07-10 09:39 | Operative Note ---
Brief Operative Note Date of procedure: 07/10/21 Pre-op diagnosis: History of ostomy status post resection for obstructive colon cancer Post-op diagnosis: same Procedure: Open ostomy reversal Grafts/Implants: No Anesthesia: GETA Findings: Normal anatomy, no obvious recurrence Complications: none Surgeon: Scotty Keller Estimated blood loss (cc): 50 Specimens Removed/Pathology: other (Margin of rectal stump, ostomy) Condition: stable Disposition: floor Operative Note Operative Note: After risk benefits and alternatives to the procedure were discussed with the patient at length she verbalized understanding and desire to continue with the procedure. Patient was taken to the main operating place upon the operative table. General esthesia was induced over endotracheal tube. Patient was then placed in modified lithotomy position. NG tube and Morrow catheter was placed. Patient's prepped and draped in the standard sterile surgical fashion. Surgical timeout was taken to verify patient and procedure being performed. Previous midline incision was used carried down through skin subtendinous tissue. The abdominal cavity was entered and omental adhesions were carefully taken down with blunt sharp and electrocautery dissection. Once this was done exploration revealed minimal adhesions the distal sigmoid was identified and carefully dissected free from the lateral abdominal wall once it was free it laid well above the pelvic brim without tension. The ostomy was then carefully dissected free circumferentially with blunt and electrocautery dissection. The ostomy was then transected with the KENDAL stapler and this came down to the pelvis without difficulty allowing a tension-free anastomosis. Due to inflammation at the end of the distal sigmoid this was transected with the KENDAL stapler both staple lines were oversewn with interrupted 3-0 Vicryl sutures. A [id number] functional end-to-end handsewn anastomosis was then performed using a backwall of 3-0 Vicryl a running 3-0 PDS for the inner layer and front wall of interrupted 3-0 Vicryl sutures. The anastomosis was widely patent it laid in the pelvis without tension and the small bowel was returned to their anatomical position. The abdominal cavity was irrigated and inspected for hemostasis. The ostomy was then cored out from the subcutaneous tissue and the fascia. Hemostasis was obtained with electrocautery and then the fascia was closed with a running looped 0 PDS suture. The skin was closed with a 0 Vicryl pursestring suture and the wound was packed with Betadine soaked Kerlix gauze. We then changed to a closing tray and the fascia was closed with a running 0 PDS suture subcutaneous tissues were closed with a running 4 Monocryl suture and skin glue dressings were applied. Patient was then awakened from anesthesia transported postanesthesia care unit awake alert in good condition.
[2021-07-10] MEDS: fentaNYL 100 MCG/2 ML VIAL IV PRN ×2 (10:14→10:16)
[2021-07-10] MEDS: LACTATED RINGERS 1,000 ML IV SCH ×3 (10:43→21:30)
[2021-07-10] MEDS: oxyCODONE HCL 5 MG TABLET PO PRN ×2 (16:46→20:50)
[2021-07-11] MEDS: oxyCODONE HCL 5 MG TABLET PO PRN ×3 (00:50→09:13)
[2021-07-11] MEDS: LACTATED RINGERS 1,000 ML IV SCH ×3 (03:19→14:39)
--- NOTE | 2021-07-11 08:09 | General Surgery Progress Note ---
SUBJECTIVE Subjective Patient information: Note initiated : 07/11/21 at 8:08 am Service Date, if different from initiated Date: [] Patient: Spring Bautista 55 y/o F admitted on 07/10/21 for Open Ostomy Reversal. Chief Complaint: [] Principal diagnosis: Postop day #1 status post ostomy reversal Interval history: Patient is doing well overnight, no nausea vomiting fevers or chills. Patient is ambulatory. No flatus, no bowel movement. Constitutional Vitals: Vital Signs Temp Pulse Resp BP Pulse Ox 98.7 F 67 16 124/72 98 07/11/21 07:29 07/11/21 07:29 07/11/21 07:29 07/11/21 07:29 07/11/21 07:29 Period Temp Pulse Resp BP Sys/Garcia Pulse Ox Last 24 Hr 97.4 F-99.6 F 66-86 11-20 113-170/55-88 95-100 Intake and Output 07/10/21 07/11/21 07/11/21 21:59 05:59 13:59 Intake Total 2370 1610 Output Total 1550 1350 Balance 820 260 Weight 149 lb 14.4 oz Intake & Output: Intake & Output 07/10/21 07/11/21 07/11/21 21:59 05:59 13:59 Intake Total 2370 1610 Output Total 1550 1350 Balance 820 260 Weight 149 lb 14.4 oz Intake: IV 610 1000 Lactated Ringers 1,000 ml @ 455 361 1016 mls/hr IV .Q10H [facility] Rx#: [id number] Oral 560 610 IV - Manual Only 1200 Output: Urine Catheter Amount 400 Void Amount 1150 1350 Other: Meal Jello from dinner Percent of Meal Consumed 50% Feeding Ability Independent Urine Appearance Clear Clear Clear Urine Color Pale Bright Yellow Pale Urine Odor Normal Normal Stool Color Brown Stool Consistency Soft # Voids 1 General appearance: cooperative and no acute distress GI/Abdominal GI/Abdominal exam: Present soft and tenderness (Appropriate tender to palpation); Absent distended Additional comments: Incision is clean dry intact, well amount of serosanguineous discharge on aissatou ssing. A/P Narrative A/P Narrative: Doing as expected, awaiting return of bowel function. Continue with clear liquid diet. Continue with ambulation. Time Spent With Patient Time: Total time spent is greater than 50% in coordination of care (as documented) at patient's floor/unit and/or counseling patient:
[2021-07-11] MEDS ORDERED: NORETHINDRONE ACETATE PO SCH (09:00)
[2021-07-11] MEDS: ACETAMINOPHEN 325 MG TABLET PO PRN ×2 (12:39→19:01)
[2021-07-11] MEDS: IBUPROFEN 600 MG TABLET PO PRN ×2 (15:23→22:35)
[2021-07-12] MEDS: LACTATED RINGERS 1,000 ML IV SCH (02:37)
[2021-07-12] MEDS: ACETAMINOPHEN 325 MG TABLET PO PRN ×4 (02:42→20:59)
--- NOTE | 2021-07-12 09:55 | General Surgery Progress Note ---
SUBJECTIVE Subjective Patient information: Note initiated : 07/12/21 at 9:53 am Service Date, if different from initiated Date: [] Patient: Spring Bautista 55 y/o F admitted on 07/10/21 for Open Ostomy Reversal. Chief Complaint: [] Principal diagnosis: Postop day #2 status post ostomy reversal Interval history: Patient feels well overnight, no nausea vomiting fevers or chills. Patient started passing flatus earlier this morning and has passed flatus multiple times. No bowel movement as of yet. She has been ambulatory. Constitutional Vitals: Vital Signs Temp Pulse Resp BP Pulse Ox 96.6 F L 68 16 160/91 97 07/12/21 07:42 07/12/21 07:42 07/12/21 07:42 07/12/21 07:42 07/12/21 07:42 Period Temp Pulse Resp BP Sys/Garcia Pulse Ox Last 24 Hr 96.6 F-98.5 F 60-68 16-18 121-160/67-91 97-98 Intake and Output 07/11/21 07/12/21 07/12/21 21:59 05:59 13:59 Intake Total 740 1300 Output Total 1050 550 Balance -310 750 Weight 145 lb 12.8 oz Intake & Output: Intake & Output 07/11/21 07/12/21 07/12/21 21:59 05:59 13:59 Intake Total 740 1300 Output Total 1050 550 Balance -310 750 Weight 145 lb 12.8 oz Intake: IV 1000 Lactated Ringers 1,000 ml @ 100 1000 mls/hr IV .Q10H [facility] Rx#: [id number] Oral 740 300 Output: Void Amount 1050 550 Other: Urine Appearance Clear Clear Clear Urine Color Bright Yellow Straw Straw Urine Odor Normal Normal General appearance: cooperative and no acute distress GI/Abdominal GI/Abdominal exam: Present soft; Absent distended or tenderness Additional comments: Incision is clean dry and intact. Ostomy site packing removed, covered with 4 x 4. A/P Narrative A/P Narrative: Doing as expected postop. Early return of bowel function. Plan: Advance diet as tolerated. Change dressing to ostomy site twice daily or as needed. Time Spent With Patient Time: Total time spent is greater than 50% in coordination of care (as documented) at patient's floor/unit and/or counseling patient:
[2021-07-12] MEDS: IBUPROFEN 600 MG TABLET PO PRN ×2 (10:45→18:10)
[2021-07-12] MEDS: NORETHINDRONE 0.35 MG PO SCH (14:17)
[2021-07-13] MEDS: IBUPROFEN 600 MG TABLET PO PRN ×3 (00:14→20:17)
[2021-07-13] MEDS: ACETAMINOPHEN 325 MG TABLET PO PRN ×2 (03:43→14:54)
[2021-07-13] MEDS: NORETHINDRONE 0.35 MG PO SCH (09:00)
--- NOTE | 2021-07-13 10:16 | General Surgery Progress Note ---
SUBJECTIVE Subjective Patient information: Note initiated : 07/13/21 at 10:14 am Service Date, if different from initiated Date: [] Patient: Spring Bautista 55 y/o F admitted on 07/10/21 for Open Ostomy Reversal. Chief Complaint: [] Principal diagnosis: Postop day #3 status post ostomy reversal Interval history: As well this morning, she continues to ambulate, she continues to pass flatus. She is tolerating a regular diet but has not had a bowel movement as of yet. She has no fevers chills nausea or vomiting. Constitutional Vitals: Vital Signs Temp Pulse Resp BP Pulse Ox 98.0 F 86 16 160/102 98 07/13/21 07:17 07/13/21 07:17 07/13/21 07:17 07/13/21 07:17 07/13/21 07:17 Period Temp Pulse Resp BP Sys/Garcia Pulse Ox Last 24 Hr 97.9 F-98.4 F 66-86 16-18 134-160/75-102 97-98 Intake and Output 07/12/21 07/13/21 07/13/21 21:59 05:59 13:59 Intake Total 800 525 Output Total 1000 1025 Balance -200 -500 Weight 149 lb 12.8 oz Intake & Output: Intake & Output 07/12/21 07/13/21 07/13/21 21:59 05:59 13:59 Intake Total 800 525 Output Total 1000 1025 Balance -200 -500 Weight 149 lb 12.8 oz Intake: Oral 800 525 Output: Void Amount 1000 1025 Other: Meal Dinner Percent of Meal Consumed 75% Feeding Ability Independent Urine Appearance Clear Clear Clear Urine Color Bright Yellow Bright Yellow Straw Urine Odor Normal Normal Stool Consistency Normal for Patient General appearance: cooperative and no acute distress Respiratory Respiratory exam: Present normal respiratory exam Cardiovascular Cardiovascular exam: Present normal rate and rhythm GI/Abdominal GI/Abdominal exam: Present normal bowel sounds and soft; Absent distended or tenderness Additional comments: Incision is clear dry and intact with small amount of serosanguineous discharge from the middle portion of the incision. Ostomy site is clean dry and intact A/P Narrative A/P Narrative: Doing as expected. Has return of bowel function, tolerating regular diet. Awaiting bowel movement. Likely home tomorrow. Time Spent With Patient Time: Total time spent is greater than 50% in coordination of care (as documented) at patient's floor/unit and/or counseling patient:
[2021-07-14] MEDS: ACETAMINOPHEN 325 MG TABLET PO PRN (01:25)
--- NOTE | 2021-07-14 08:24 | Discharge Summary ---
Discharge Provider Provider Patient information: Note initiated : 07/14/21 at 8:21 am Service Date, if different from initiated Date: [] Patient: Spring Bautista 55 y/o F admitted on 07/10/21 for Open Ostomy Reversal. Chief Complaint: [] Date of admission: 07/10/21 04:50 Discharge date: 07/14/21 Primary care physician: [facility]SE Hospital Course Hospital course: Patient mated for and underwent an uneventful ostomy reversal. Postop she progressed well, is now ambulatory, tolerating regular diet, and has return of bowel function. Discharge diagnosis: Status post ostomy reversal Time Spent with Patient Time attestation: Total time spent providing and/or coordinating discharge services: Physical Examination Vital Signs Vital signs: Temp Pulse Resp BP Pulse Ox 98.4 F 66 16 153/86 99 07/14/21 07:26 07/14/21 07:26 07/14/21 07:26 07/14/21 07:26 07/14/21 07:26 Discharge Plan Patient/Caregiver Discharge Instructions Activity: increase activity as tolerated Diet: Regular Diet Activity Restrictions/Additional Instructions: Patient however. Change dressing on ostomy site twice daily. Follow-up with me Wednesday this week. Resume normal activity as tolerated Prescriptions: New ibuprofen 800 mg tablet 800 mg PO TID PRN (Reason: pain) Qty: 90 0RF acetaminophen [Tylenol 8 Hour] 650 mg tablet extended release 650 mg PO Q8H PRN (Reason: pain) Qty: 90 0RF Continued norethindrone (contraceptive) 0.35 mg tablet See Rx Instructions .ROUTE .COMPLEX Qty: 84 4RF Dose Instruction: take 1 tablet by mouth once daily Rx Instructions: take 1 tablet by mouth once daily acetaminophen [Tylenol 8 Hour] 650 mg tablet extended release 650 mg PO Q8H PRN (Reason: pain) Qty: 60 0RF ibuprofen 800 mg tablet 1 tab PO TIDP PRN (Reason: pain) 0RF loratadine [Claritin] 10 mg Tablet 10 mg PO QDP PRN (Reason: Allergy Symptoms) 0RF Follow Up Plan Follow up with: Scotty Keller MD [Physician] - Patient Disposition: Home, Self-Care Discharge Orders: Discharge Order (Routine); Ordered 07/14/21 Ordered By: Scotty Keller Pending Pending Pending: Resuscitation Status Resuscitate (Full Code) Diet Regular Diet Start Sat Jul 12 1001 Acetaminophen (Acetaminophen 325 Mg Tablet) 650 mg PO Q6HP PRN; Protocol PRN Reason: Per Pain Protocol/Fever > 101 Last Admin: 07/14/21 01:25 Dose: 650 mg Documented by: Admin: 07/13/21 14:54 Dose: 650 mg Documented by: Admin: 07/13/21 03:43 Dose: 650 mg Documented by: Admin: 07/12/21 20:59 Dose: 650 mg Documented by: Admin: 07/12/21 14:25 Dose: 650 mg Documented by: Admin: 07/12/21 06:48 Dose: 650 mg Documented by: Admin: 07/12/21 02:42 Dose: 650 mg Documented by: Admin: 07/11/21 19:01 Dose: 650 mg Documented by: Admin: 07/11/21 12:39 Dose: 650 mg Documented by: MAE Hydromorphone HCl (Hydromorphone 0.5 Mg/0.5 Ml Syringe) 0.5 mg IV Q2HP PRN; Protocol PRN Reason: Per Pain Protocol Last Admin: 07/10/21 10:43 Dose: 0.5 mg Documented by: MAE Ibuprofen (Ibuprofen 600 Mg Tablet) 600 mg PO QIDP PRN; Protocol PRN Reason: Per Pain Protocol/Fever > 101 Last Admin: 07/13/21 20:17 Dose: 600 mg Documented by: Admin: 07/13/21 08:59 Dose: 600 mg Documented by: Admin: 07/13/21 00:14 Dose: 600 mg Documented by: Admin: 07/12/21 18:10 Dose: 600 mg Documented by: Admin: 07/12/21 10:45 Dose: 600 mg Documented by: Admin: 07/11/21 22:35 Dose: 600 mg Documented by: Admin: 07/11/21 15:23 Dose: 600 mg Documented by: MAE Oxycodone HCl (Oxycodone Hcl 5 Mg Tablet) 5 mg PO Q4HP PRN; Protocol PRN Reason: Per Pain Protocol Last Admin: 07/11/21 09:13 Dose: 5 mg Documented by: Admin: 07/11/21 05:03 Dose: 5 mg Documented by: Admin: 07/11/21 00:50 Dose: 5 mg Documented by: Admin: 07/10/21 20:50 Dose: 5 mg Documented by: Admin: 07/10/21 16:46 Dose: 5 mg Documented by: MAE Norethindrone ( Contraceptive) 0.35 Mg Tablet 1 dose PO DAILY [place] Last Admin: 07/13/21 09:00 Dose: 1 dose Documented by: Admin: 07/12/21 14:17 Dose: Not Given Documented by: MAE Shift Summary 07/14/21 05:13 Shift Summary by [facility] Pt has rested on & off tonight. Her ABD pain has been well controlled (-10/12) w/ alternating PO PRN Ibuprofen 600mg Q 6hrs & Tylenol 650mg PO PRN given Q 6hr. No N/V. Still no BM - passing flatus. Saline lock to her LT wrist - flushed & patent. Midline ABD incision w/ Dermabond in place - amt sang drainage - 4x4 gauze placed. Old ostomy site LT ABD w/ gauze dressing - mod shadow - dry & intact. She is up AMB (I) to & from BR to void QS into hat, as well as out in cespedes a few times - gait stable w/o device. VS - WNL on R.A.. She is A&O x4, calm, pleasant, & cooperative. Initialized on 07/14/21 05:13 - END OF NOTE
[2021-07-14] MEDS: IBUPROFEN 600 MG TABLET PO PRN (09:26)
[2021-07-14] MEDS: NORETHINDRONE 0.35 MG PO SCH (09:27)
--- NOTE | 2021-07-14 11:59 | Surgical Pathology Report ---
Histology Microscopic Diagnosis Specimen A- COLOSTOMY, EXCISION: --- COLOSTOMY STOMA WITH MILD CHRONIC INFLAMMATION AND FIBROSIS. --- NO NEOPLASIA OR MALIGNANCY IDENTIFIED. --- SURGICAL MARGINS APPEAR VIABLE. Procedural Impression Stage 3 colon cancer. Gross Description Received in formalin labeled ostomy, is a portion of skin. It is 3 x 2 cm. Centrally there is a 2.8 x 1.9 cm mucosal area. Extending from this is jewell fatty tissue. It is 5 x 4.5 x 2.7 cm. Located within the jewell fatty tissue is a portion of colon. It is 4 cm in length by 2 cm in diameter. The margin is stapled and inked black. The wall is 0.3 cm thick. The mucosa is jewell and plicated. Supervisor Laundry sections are submitted in three cassettes: A1 - ends; A2 - resources representative sections of transition from skin to mucosal surface; A3 - margin. Microscopic Diagnosis Specimen B- COLON, MARGIN, RESECTION: --- SEGMENT OF COLON WITH NO SPECIFIC DIAGNOSTIC CHANGE. --- NO NEOPLASIA OR MALIGNANCY IDENTIFIED. --- SURGICAL MARGINS APPEAR VIABLE. Gross Description Received in formalin labeled margin, is a segment of colon. It is received with both margins stapled. There is a suture on one margin. This margin is inked black. It is 2.5 cm in length by 2 cm in diameter. The serosa is ambrosio jewell. The wall is 0.3 cm thick. The mucosa is jewell and plicated. Supervisor Laundry sections are submitted in two cassettes: B1 - margins; B2 - random sections. (SCB:solomon) Electronically Signed Wang Rahman MD, FCAP Electronically Signed 07/14/2021 11:58
== END 2021-07-14 10:55 | disposition home or self-care (01) | DRG 345 ==
LOC: MEDSUR 07-10 04:50 → EDSTATUS 07-10 07:30
PROVIDERS: ADMIT Surgery; ATTEND Surgery